=== PATIENT | male | born 1945 | race Caucasian/White ===

== ENCOUNTER 2023-10-18 13:48 | Emergency (ER) | payer MEDICARE, SELFPAY ==
[2023-10-18 13:48] VITALS: BP 133/78; PULSE 69; RESP 16; TEMP 36.7; O2SAT 94
--- NOTE | 2023-10-18 13:52 | CT_ITS ---
WS: [id number] CT ABDOMEN AND PELVIS NONCONTRAST HISTORY: hematuria, history of stones TECHNIQUE: Imaging performed through the abdomen and pelvis. Coronal and sagittal reformats are submi tted. All CT scans at [facility] use at least one of these dose optimization techniques: auto mated exposure control; mA and/or kV adjustment per patient size (includes targeted exams where dose is matched to clinical indication); or iterative reconstruction. DLP: 964.74 mGy.cm COMPARISON: None available. Lower thorax: There are a few small micronodules at the lung bases. Heart size is normal. Moderate-si zed hiatal hernia. Liver: Normal size liver. No mass or bile duct dilatation. Gallbladder: Normal gallbladder. No pericholecystic fluid or cholelithiasis. No gallbladder wall thic kening. Pancreas: Normal size and attenuation. Normal pancreatic duct. No pancreatitis or mass. Spleen: Normal. Adrenal glands: Normal. No mass. Right kidney: Mildly enlarged and edematous kidney. Moderate hydronephrosis and mild perinephric stra nding. There is several exophytic low-attenuation masses from the kidney and a few hyperdense cortica l lesions in the cortex. The RIGHT ureter is dilated into the pelvis. There are few calcifications al mary beth the course of the RIGHT ureter. These calcifications closely associated with the ureter but also the adjacent iliac artery. Left kidney: No obstruction. Aorta: Mild atherosclerosis abdominal aorta with no aneurysm. IVC filter is also present. No free fluid, intraperitoneal air or significant lymphadenopathy. GI tract: No obstruction. Mild distal diverticular disease. There is mild diffuse rectal wall thicken ing and adjacent stranding in the mesorectal fat. Abdominal wall: Negative. No hernia. Pelvis: Mildly distended urinary bladder. There is mixed density within the urinary bladder along wit h calcifications. Bilateral inguinal canals are patent containing fat and GI tract. Small bowel in th e RIGHT inguinal canal and colon with diverticula in the LEFT inguinal canal. There is no obstruction identified. The entire hernia is not included. Osseous structures: L2 mild anterior wedging without retropulsion. Fusion of the SI joints. Prior BRITTANY F RIGHT hip. Fracture line is still evident. Osteonecrosis suspected developing at the RIGHT femoral head. CT/CT abdomen pelvis wo con [id number] IMPRESSION: 1. Moderate RIGHT hydronephrosis with perinephric stranding. Additional marked dilatation of the RIGHT ureter. The entire ureter is difficult to visualize. T here are calcifications in the pelvis which may be within the ureter but are al so closely associated with the iliac artery. With the extent of the hydronephro sis and the more distal ureter being normal caliber suspect at least 1 of these calcifications is probably in the ureter. 2. Abnormal urinary bladder. There is dense material in the urinary bladder. T his may be tumor or blood. There are also additional calcifications in the blad sandra which could be from the RIGHT kidney. 3. Patent bilateral inguinal canals. Nonobstructed small bowel extends into th e RIGHT inguinal canal. Nonobstructed colon with diverticular disease extends i nto the LEFT inguinal canal. No obstruction. 4. Diverticular disease without acute diverticulitis. 5. Circumferential rectal wall thickening with adjacent perirectal fat strandi ng. Rectal neoplasm is not excluded. Recommend follow-up with gastroenterology. Rectal neoplasm needs to be excluded. 6. IVC filter. 7. Moderate hiatal hernia.
[2023-10-18] MEDS: HYDROcodone-acetaminophen 10-325 mg Tablet 1 TAB PO (14:37)
[2023-10-18 14:47] LABS: Basophils % 0.4 %; Eosinophils # 0.1 10^3/uL (0.0-0.8); Eosinophils % 1.1 %; Hematocrit 35.4 % (37-53); Lymphocytes # 1.5 10^3/uL (0.8-4.8); Mean Corpuscular HGB Conc 31.6 g/dL (30-55); Mean Corpuscular Hemoglobin 28.7 pg (27-33); Mean Corpuscular Volume 90.8 fl (82-101); Mean Platelet Volume 12.2 fL (7.4-10.4); Monocytes # 0.8 10^3/uL (0.2-0.9); Monocytes % 7.7 %; Neutrophils # 7.52 10^3/uL (1.8-7.7); Neutrophils % 75.5 %; Nucleated Red Blood Cells % 0 %; Platelet Count 190 10^3/cmm (157-399); Red Cell Distribution Width 13.2 % (12.1-15.1); White Blood Count 9.97 10^3/uL (3.29-11.43)
[2023-10-18 15:11] LABS: INR 1.05 (0.8-1.2)
--- NOTE | 2023-10-18 15:11 | ED_ITS ---
HPI - Back Pain/Injury 2 General: Chief Complaint: Back Pain/Injury Stated Complaint: blood in urine Time Seen by Provider: 10/18/23 13:48 History of Present Illness: 78-year-old man with a recent history of kidney stones, chronic back pain and hypertension who presents the emergency room by ambulance with hematuria. Apparently he had gone to his clinic and had louis blood so they called an ambulance. Ambulance had suggested he go to [place] but he insisted he come to [place] because he cannot drive and the person who can give him a ride will go to [place]. He is not having any flank pain. No fevers. He is not having any urinary retention. He has been passing some clots. No pelvic pain. He says he passed a stone a couple weeks ago that was painful and he has the kidney stone in a jar in his pocket. Review of Systems 2 Narrative: Constitutional symptoms: Negative except as documented in HPI. Skin symptoms: Negative except as documented in HPI. Eye symptoms: Negative except as documented in HPI. ENMT symptoms: Negative except as documented in HPI. Respiratory symptoms: Negative except as documented in HPI. Cardiovascular symptoms: Negative except as documented in HPI. Gastrointestinal symptoms: Negative except as documented in HPI. Genitourinary symptoms: Negative except as documented in HPI. Musculoskeletal symptoms: Negative except as documented in HPI. Neurologic symptoms: Negative except as documented in HPI. Psychiatric symptoms: Negative except as documented in HPI. Endocrine symptoms: Negative except as documented in HPI. Physical Exam 2 Narrative: EXAM NARRATIVE: General: Alert, no acute distress. Skin: Warm, dry. Head: Normocephalic, atraumatic. Neck: Supple, trachea midline. Eye: Extraocular movements are intact. Ears, nose, mouth and throat: mucosa moist. Cardiovascular: Regular, Normal peripheral perfusion. Respiratory: Lungs are clear to auscultation, respirations are non-labored, breath sounds are equal, Symmetrical chest wall expansion. Gastrointestinal: Soft, Nontender, Non distended Musculoskeletal: Normal ROM, no deformity. Neurological: Alert and oriented, No focal neurological deficit observed. Psychiatric: Cooperative, appropriate mood & affect. Course 2 Vital Signs: Vital signs: Vital Signs Temperature 98.1 F 10/18/23 13:48 Pulse Rate 69 10/18/23 13:48 Respiratory Rate 16 10/18/23 13:48 Blood Pressure 133/78 10/18/23 13:48 Pulse Oximetry 94 10/18/23 13:48 Oxygen Delivery Me thod Room Air 10/18/23 13:48 MDM - Back Pain/Injury Medical Decision Making Medical decision making: Differential diagnosis including but not limited to and based on the above HPI, review of systems and physical exam: Ureterolithiasis. Urinary tract infection. Appendicitis. Cholecystis. Musculoskeletal / back pain. Pyelonephritis. Bladder cancer. Orders placed to evaluate differential diagnosis based on the above differential, HPI and physical exam Lab Review: Laboratory results were reviewed and interpreted by myself the emergency room physician. Patient does not have any leukocytosis. Hemoglobin is 11.2. BUN and creatinine are 17 and 1.3. I do not have any previous labs so I do not know if this is a chronic kidney disease or chronic anemia. I am giving some fluids. Urinalysis shows gross hematuria. There are a few whites. IV Rocephin and IV fluids were given here. CT of the abdomen pelvis without contrast: Moderate right hydronephrosis with perinephric stranding. Marked dilatation of the right ureter. The entire ureter is difficult to visualize. There are some calcifications near the ureter and there is suspicion that 1 of these may be in the ureter. Patient also has an abnormal urinary bladder. Dense material in the bladder that could be tumor or blood. Given the patient's hematuria this is likely blood. This was reviewed and interpreted by myself the emergency room physician. I also reviewed the radiology report. I reviewed the patient's medical record. Reexamination: Patient remained stable. He has not had any urinary retention. No fevers. No altered mental status. No focal motor deficits. We have discussed at length the patient's issues with being able to to get a ride somewhere. He cannot drive and the only ride he has will not drive to [place] so he has not been able to see a urologist. We discussed going to [place]. This is 50 miles from his home and does not involve any urban driving. I am consulting urology at [place] and will send him home with the information. We also discussed that if he develops urinary retention or fevers to seek care immediately and likely should go to hospital that does have urology. Again, I stressed that it is urgent that he follow with a urologist. This does not need to wait for weeks and weeks but rather needs to be done in the next few days. Consultation: I spoke with Dr. Ferraro who is a urologist at [facility]. He says that his COMMERCIAL [employer]ES INSURANCE AGENT can see the patient tomorrow in clinic and that he should bring the CT scan. Patient has not had fever. He is not having a pain right now. He probably does have an obstructing stone that has been there for some time now. He definitely needs follow-up for possible intervention. Likely also needs a cystoscopy Assessment and plan: Hematuria Dehydration Kidney injury Hydronephrosis Nephrolithiasis Possible ureterolithiasis. ?IV fluids and IV Rocephin in the emergency room. - Discharged home - Discussed findings and plan with patient. Answered any questions. - All laboratory values were reviewed and interpreted personally by myself, the ER physician - All imaging was reviewed and interpreted personally by myself, the ER physician. - Evaluation and treatment of this problem were appropriate in the emergency setting Labs 10/18/23 14:12 10/18/23 14:12 Radiology Impressions Abdomen/Pelvis CT 10/18/23 13:52 IMPRESSION: 1. Moderate RIGHT hydronephrosis with perinephric stranding. Additional marked dilatation of the RIGHT ureter. The entire ureter is difficult to visualize. There are calcifications in the pelvis which may be within the ureter but are also closely associated with the iliac artery. With the extent of the hydronephrosis and the more distal ureter being normal caliber suspect at least 1 of these calcifications is probably in the ureter. 2. Abnormal urinary bladder. There is dense material in the urinary bladder. This may be tumor or blood. There are also additional calcifications in the bladder which could be from the RIGHT kidney. 3. Patent bilateral inguinal canals. Nonobstructed small bowel extends into the RIGHT inguinal canal. Nonobstructed colon with diverticular disease extends into the LEFT inguinal canal. No obstruction. 4. Diverticular disease without acute diverticulitis. 5. Circumferential rectal wall thickening with adjacent perirectal fat stranding. Rectal neoplasm is not excluded. Recommend follow-up with gastroenterology. Rectal neoplasm needs to be excluded. 6. IVC filter. 7. Moderate hiatal hernia. Laboratory Results WBC 9.97 10^3/uL (3.29-11.43) 10/18/23 14:12 RBC 3.90 10^6/uL (3.85-5.65) 10/18/23 14:12 Hgb 11.20 g/dL (11.27-16.99) L 10/18/23 14:12 Hct 35.4 % (37-53) L 10/18/23 14:12 MCV 90.8 fl (82-101) 10/18/23 14:12 MCH 28.7 pg (27-33) 10/18/23 14:12 MCHC 31.6 g/dL (30-55) 10/18/23 14:12 RDW 13.2 % (12.1-15.1) 10/18/23 14:12 Plt Count 190 10^3/cmm (157-399) 10/18/23 14:12 MPV 12.2 fL (7.4-10.4) H 10/18/23 14:12 Neut % (Auto) 75.5 % 10/18/23 14:12 Lymph % (Auto) 15.0 % 10/18/23 14:12 [place] % (Auto) 7.7 % 10/18/23 14:12 Eos % (Auto) 1.1 % 10/18/23 14:12 Baso % (Auto) 0.4 % 10/18/23 14:12 Neut # (Auto) 7.52 10^3/uL (1.8-7.7) 10/18/23 14:12 Lymph # (Auto) 1.5 10^3/uL (0.8-4.8) 10/18/23 14:12 [place] # (Auto) 0.8 10^3/uL (0.2-0.9) 10/18/23 14:12 Eos # (Auto) 0.1 10^3/uL (0.0-0.8) 10/18/23 14:12 Baso # (Auto) 0.0 10^3/uL (0.0-0.1) 10/18/23 14:12 Nucleated RBC % (auto) 0 % 10/18/23 14:12 Nucleated RBCs # 0.0 /100WBC 10/18/23 14:12 PT 14.10 SECONDS (12.1-14.9) 10/18/23 14:12 INR 1.05 (0.8-1.2) 10/18/23 14:12 APTT 28.2 SECONDS (23.9-36.7) 10/18/23 14:12 Sodium 133 mmol/L (136-145) L 10/18/23 14:12 Potassium 5.3 mmol/L (3.5-5.1) H 10/18/23 14:12 Chloride 99 mmol/L (98-107) 10/18/23 14:12 Carbon Dioxide 23 mmol/L (22-29) 10/18/23 14:12 Anion Gap 16.3 (5-19) 10/18/23 14:12 BUN 17 mg/dL (8-23) 10/18/23 14:12 Creatinine 1.3 mg/dL (0.7-1.2) H 10/18/23 14:12 GFR Calculation Not Reportable 10/18/23 14:12 Glucose 106 mg/dL (65-115) 10/18/23 14:12 Calculated Osmolality 278 mOsm/kg (285-295) L 10/18/23 14:12 Lactic Acid 1.8 mmol/L (0.5-2.2) 10/18/23 14:12 Calcium 9.2 mg/dL (8.5-10.5) 10/18/23 14:12 Total Bilirubin 0.2 mg/dL (0.15-1.2) 10/18/23 14:12 AST 12 U/L (0-40) 10/18/23 14:12 ALT 10 U/L (0-41) 10/18/23 14:12 Alkaline Phosphatase 87 U/L (40-130) 10/18/23 14:12 C-Reactive Protein 7.7 mg/L (0.0-4.9) H 10/18/23 14:12 Total Protein 6.8 g/dL (6.6-8.7) 10/18/23 14:12 Albumin 4.1 g/dL (3.5-5.2) 10/18/23 14:12 Globulin 2.7 g/dL (1.3-4.6) 10/18/23 14:12 Urine Color Red (Yellow) A 10/18/23 14:22 Urine Appearance Cloudy (CLEAR) A 10/18/23 14:22 Urine pH 6.5 (5-7) 10/18/23 14:22 Ur Specific [place] 1.010 (1.005-1.030) 10/18/23 14:22 Urine Protein 3+ (Negative) H 10/18/23 14:22 Urine Glucose (UA) Norm (Normal) 10/18/23 14:22 Urine Ketones Negative (Negative) 10/18/23 14:22 Urine Blood 3+ (Negative) H 10/18/23 14:22 Urine Nitrate Negative (Negative) 10/18/23 14:22 Urine Bilirubin Neg (Negative) 10/18/23 14:22 Urine Urobilinogen Norm mg/dL (Negative) 10/18/23 14:22 Ur Leukocyte Esterase Trace (Negative) H 10/18/23 14:22 Urine RBC Too numerous to cnt /hpf (0-2) H 10/18/23 14:22 Urine WBC 11-20 /hpf (0-5) 10/18/23 14:22 Ur Squamous Epith Cells 0-4 /hpf (0-5) H 10/18/23 14:22 Amorphous Sediment Not Reportable 10/18/23 14:22 Urine Bacteria Trace /hpf (NONE) 10/18/23 14:22 All radiology interpretation(s) finalized by discharge Discharge Plan Discharge Patient Disposition: Home Clinical Impression: Hematuria, Nephrolithiasis, Hydronephrosis, Dehydration Condition: Stable Prescriptions: New Flomax 0.4 mg capsule 0.4 mg PO DAILY Qty: 30 0RF cefdinir 300 mg capsule 300 mg PO BID 10 Days Qty: 20 0RF Discharge Orders: Discharge ED (Routine); Ordered 10/18/23 Ordered By: Sherrie Campbell Referrals: Andrew Casarez [Referring] - 4-7 days (Please call Dr. Casarez's office for follow-up appointment.) Harshad Ferraro MD [Referring] - (Dr. Ferraro's COMM[employer] INSURANCE AGENT can see you tomorrow in clinic in [place] if you can make it. Dr. Ferraro and Hermelindo work together so you can see either one of them in their clinic. Both are aware of your case) Jose Caicedo DO [Primary Care Provider] - 1-3 days Discharge Diet: Usual diet Discharge Activity: Increase activity as tolerated Patient Instructions: Hematuria (ED) Activity Restrictions/Additional Instructions: If you develop urinary retention (you are no longer able to urinate and you develop pain in your pelvic region) please seek medical attention immediately. I would suggest that you go to the hospital that has urology. Either [facility] in [place] or [facility] in [place]. Thank you for choosing [facility] for your healthcare needs today. Please realize this is an emergency room and that we are providing you with a medical screening exam and this may not be complete and all inclusive of all the testing and or work up that you may need to determine your ailment or severity of your illness. You have been screened and evaluated and felt safe for discharge. Health conditions do change or evolve sometimes and as such it is important that you follow up with your Primary Doctor to be re checked, 3-5 days is a general good time frame for follow up. You are always welcome to return to the ED for re assessment if your symptoms are worsening or you have new concerns Coding Level of Care Code ED Alteration Workroom Supervisor for Ellen Doran
[2023-10-18 15:12] LABS: Partial Thromboplastin Time 28.2 SECONDS (23.9-36.7)
[2023-10-18 15:14] LABS: Lactic Sepsis W/Reflex 1.8 mmol/L (0.5-2.2)
[2023-10-18 15:15] LABS: Alanine Aminotransferase 10 U/L (0-41); Albumin Level 4.1 g/dL (3.5-5.2); Alkaline Phosphatase 87 U/L (40-130); Anion Gap 16.3 (5-19); Aspartate Amino Transferase 12 U/L (0-40); Blood Urea Nitrogen 17 mg/dL (8-23); C Reactive Protein 7.7 mg/L (0.0-4.9); Calcium 9.2 mg/dL (8.5-10.5); Carbon Dioxide 23 mmol/L (22-29); Chloride 99 mmol/L (98-107); Globulin 2.7 g/dL (1.3-4.6); Glucose 106 mg/dL (65-115); Osmolality Calculated 278 mOsm/kg (285-295); Potassium 5.3 mmol/L (3.5-5.1); Sodium 133 mmol/L (136-145); Total Bilirubin 0.2 mg/dL (0.15-1.2); Total Protein 6.8 g/dL (6.6-8.7)
[2023-10-18 15:43] LABS: Protein Urine 3+ (Negative); Urine Appearance Cloudy (CLEAR); Urine Color Red (Yellow); pH Urine 6.5 (5-7)
[2023-10-18 15:44] LABS: Add Urine Culture? Yes; Bacteria Urine TRACE /hpf; Bilirubin Urine Neg (Negative); Blood Urine 3+ (Negative); Glucose Urine UA Norm (Normal); Ketones Urine Negative (Negative); Leukocyte Esterase Urine Trace (Negative); Nitrate Urine Negative (Negative); RBC Urine TOO NUMEROUS TO CNT /hpf (0-2); Squamous Epithelial Cell Urine 0-4 /hpf (0-5); Urobilinogen Urine Norm (Negative)
[2023-10-18] MEDS: cefTRIAXone 1,000 mg SDV 1000 MG IVP (16:06)
[2023-10-18] MEDS: sodium chloride 0.9% 1,000 ML 999 ML IV (16:07)
[2023-10-18 17:11] VITALS: BP 126/74; PULSE 70; O2SAT 97
== END 2023-10-18 17:12 | disposition home or self-care (01) ==
PROVIDERS: Emergency Provider Emergency Medicine
DX: N13.2 Hydronephrosis with renal and ureteral calculous obstruction (principal); R31.9 Hematuria, unspecified; E86.0 Dehydration
CPT/HCPCS: 36415; 74176; 80053; 81001; 83605; 85025; 85610; 85730; 86140; 87040; 87086; 96374; 99285; J0696; J7030

== ENCOUNTER 2023-12-20 13:00 | Oncology outpatient (recurring) (ONCR) | payer MEDICARE, SELFPAY ==
--- OUTSIDE RECORDS SUMMARY | 2023-12-06 11:37 | XMS_ITS ---
Author Name Unknown Address [address] [place] [address] [phone] Phone Organization Unknown Address [address] [place] [address] [phone] Phone Care Team Providers Care Data Collector Name Role Phone OSBALDO BAKER MD Attending Unavailable Social History Type Status Start Date End Date Code Code Syst em Smoking History Never smoker (Never Smoked) [id number] SNOMED CT Sex Male Hospital Discharge Instructions Should you have any questions prior to discharge, please contact a member of your healthcare team. If you have left the hospital and have any questions, please contact your primary care physician. Reason For Referral No Data Found Allergies and Adverse Reactions Allergy Substance Reaction Severity Start Date Concern Status Co de Code System GLYCOPYRROLATE Active 0041 RxNorm Plan of Treatment No Data Found Encounters Encounter Diagnosis Start Date Code Code Sys tem Acute COVID-19 05/30/2023 9046748520 SNOMED-CT Personal Care Team Section Performer Name Performer Role Active Date Inactive Da ulisses
--- OUTSIDE RECORDS SUMMARY | 2023-12-06 11:37 | XMS_ITS ---
Author Name Unknown Address [address] [place] [address] [phone] Phone Organization Unknown Address [address] [place] [address] [phone] Phone Care Team Providers Care Arc Welding Machine Operator Name Role Phone OSBALDO BAKER MD Attending Unavailable Social History Type Status Start Date End Date Code Code Syst em Smoking History Never smoker (Never Smoked) 076502804 SNOMED CT Sex Male Hospital Discharge Instructions Should you have any questions prior to discharge, please contact a member of your healthcare team. If you have left the hospital and have any questions, please contact your primary care physician. Reason For Referral No Data Found Allergies and Adverse Reactions Allergy Substance Reaction Severity Start Date Concern Status Co de Code System GLYCOPYRROLATE Active 4958 RxNorm Plan of Treatment No Data Found Encounters Encounter Diagnosis Start Date Code Code Sys tem 05/16/2023 [id number] SNOMED-CT Personal Care Team Section Performer Name Performer Role Active Date Inactive Da te
--- OUTSIDE RECORDS SUMMARY | 2023-12-06 11:37 | XMS_ITS ---
Author Name Unknown Address [address] [place] [address] [phone] Phone Organization Unknown Address [address] [place] [address] [phone] Phone Care Team Providers Care Business Center Attendant Name Role Phone OSBALDO BAKER MD Attending Unavailable Social History Type Status Start Date End Date Code Code Syst em Smoking History Never smoker (Never Smoked) 456897886 SNOMED CT Sex Male Hospital Discharge Instructions Should you have any questions prior to discharge, please contact a member of your healthcare team. If you have left the hospital and have any questions, please contact your primary care physician. Reason For Referral No Data Found Allergies and Adverse Reactions Allergy Substance Reaction Severity Start Date Concern Status Co de Code System GLYCOPYRROLATE Active 1988 RxNorm Plan of Treatment No Data Found Encounters Encounter Diagnosis Start Date Code Code Sys tem Acute COVID-19 05/23/2023 [id number] SNOMED-CT Personal Care Team Section Performer Name Performer Role Active Date Inactive Da ulisses
--- OUTSIDE RECORDS SUMMARY | 2023-12-06 11:38 | XMS_ITS ---
Author Name Unknown Address [address] [place] [address] [phone] Phone Organization Unknown Address [address] [place] [address] [phone] Phone Care Team Providers Care Pharmacy Technician Per Diem Name Role Phone OSBALDO BAKER MD Attending Unavailable Social History Type Status Start Date End Date Code Code Syst em Smoking History Never smoker (Never Smoked) 098472057 SNOMED CT Sex Male Hospital Discharge Instructions Should you have any questions prior to discharge, please contact a member of your healthcare team. If you have left the hospital and have any questions, please contact your primary care physician. Reason For Referral No Data Found Allergies and Adverse Reactions Allergy Substance Reaction Severity Start Date Concern Status Co de Code System GLYCOPYRROLATE Active 4952 RxNorm Plan of Treatment No Data Found Encounters Encounter Diagnosis Start Date Code Code Sys tem 06/20/2023 [id number] SNOMED-CT Personal Care Team Section Performer Name Performer Role Active Date Inactive Da te
--- OUTSIDE RECORDS SUMMARY | 2023-12-06 11:38 | XMS_ITS ---
Author Name Unknown Address [address] [place] [address] [phone] Phone Organization Unknown Address [address] [place] [address] [phone] Phone Care Team Providers Care Nursing Student Name Role Phone OSBALDO BAKER MD Attending Unavailable Social History Type Status Start Date End Date Code Code Syst em Smoking History Never smoker (Never Smoked) 319411051 SNOMED CT Sex Male Hospital Discharge Instructions Should you have any questions prior to discharge, please contact a member of your healthcare team. If you have left the hospital and have any questions, please contact your primary care physician. Reason For Referral No Data Found Allergies and Adverse Reactions Allergy Substance Reaction Severity Start Date Concern Status Co de Code System GLYCOPYRROLATE Active 4951 RxNorm Plan of Treatment No Data Found Encounters Encounter Diagnosis Start Date Code Code Sys tem Closed fracture of neck of femur 06/06/2023 [id number] SNOMED-CT Personal Care Team Section Performer Name Performer Role Active Date Inactive Da te
--- OUTSIDE RECORDS SUMMARY | 2023-12-06 11:38 | XMS_ITS ---
Author Name Unknown Address [address] [place] [address] [phone] Phone Organization Unknown Address [address] [place] [address] [phone] Phone Care Team Providers Care Resistance Machine Welder Setter Name Role Phone OSBALDO BAKER MD Attending Unavailable Social History Type Status Start Date End Date Code Code Syst em Smoking History Never smoker (Never Smoked) 545212995 SNOMED CT Sex Male Hospital Discharge Instructions Should you have any questions prior to discharge, please contact a member of your healthcare team. If you have left the hospital and have any questions, please contact your primary care physician. Reason For Referral No Data Found Allergies and Adverse Reactions Allergy Substance Reaction Severity Start Date Concern Status Co de Code System GLYCOPYRROLATE Active 4957 RxNorm Plan of Treatment No Data Found Encounters Encounter Diagnosis Start Date Code Code Sys tem Depressive disorder 06/27/2023 [id number] SNOMED-C T Personal Care Team Section Performer Name Performer Role Active Date Inactive Da te
[2023-12-06 13:41] LABS: Basophils % 0.4 %; Eosinophils # 0.2 10^3/uL (0.0-0.8); Eosinophils % 1.7 %; Hematocrit 26.1 % (37-53); Lymphocytes # 1.3 10^3/uL (0.8-4.8); Lymphocytes % 12.5 %; Mean Corpuscular HGB Conc 29.5 g/dL (30-55); Mean Corpuscular Hemoglobin 24.2 pg (27-33); Mean Corpuscular Volume 82.1 fl (82-101); Mean Platelet Volume 9.9 fL (7.4-10.4); Monocytes # 0.9 10^3/uL (0.2-0.9); Monocytes % 8.9 %; Neutrophils # 7.93 10^3/uL (1.8-7.7); Neutrophils % 75.9 %; Nucleated Red Blood Cells % 0 %; Platelet Count 410 10^3/cmm (157-399); Red Blood Count 3.18 10^6/uL (3.85-5.65); Red Cell Distribution Width 16.6 % (12.1-15.1); White Blood Count 10.45 10^3/uL (3.29-11.43)
[2023-12-06 15:00] LABS: Alanine Aminotransferase 8 U/L (0-41); Albumin Level 3.7 g/dL (3.5-5.2); Alkaline Phosphatase 97 U/L (40-130); Anion Gap 20.1 (5-19); Aspartate Amino Transferase 13 U/L (0-40); Blood Urea Nitrogen 23 mg/dL (8-23); Calcium 8.8 mg/dL (8.5-10.5); Carbon Dioxide 22 mmol/L (22-29); Chloride 99 mmol/L (98-107); Creatinine Clr Calc Pharmacy 44.5663; Ferritin 17 ng/mL (30-400); Globulin 3.2 g/dL (1.3-4.6); Glucose 107 mg/dL (65-115); Iron 14 ug/dL (59-158); Osmolality Calculated 286 mOsm/kg (285-295); Percent Saturation 5.4 % (20-50); Potassium 5.1 mmol/L (3.5-5.1); Sodium 136 mmol/L (136-145); Total Bilirubin 0.2 mg/dL (0.15-1.2); Total Iron Binding Capacity 256 mcg/dl; Total Protein 6.9 g/dL (6.6-8.7); Unsaturated Iron Binding 242 ug/dL (112-347)
[2023-12-11 13:45] VITALS: BP 121/61; PULSE 61; RESP 18; TEMP 36.2; O2SAT 94
[2023-12-11] MEDS: iron sucrose 200 MG in sodium chloride 0.9% (100 ml) 100 ML 220 MG IV (14:15)
[2023-12-11] MEDS: sodium chloride 0.9% 250 ML 75 ML IV (14:15)
[2023-12-11 15:15] VITALS: BP 147/58; PULSE 71; RESP 18; TEMP 36.3; O2SAT 95
[2023-12-13 13:58] VITALS: BP 142/68; PULSE 68; RESP 17; TEMP 36.2; O2SAT 96
[2023-12-13] MEDS: iron sucrose 200 MG in sodium chloride 0.9% (100 ml) 100 ML 220 MG IV (14:09)
[2023-12-13 15:13] VITALS: BP 150/66; PULSE 66; RESP 16; TEMP 36.4; O2SAT 98
--- OUTSIDE RECORDS SUMMARY | 2023-12-15 10:16 | XMS_ITS ---
Author Name Unknown Address [address] [place] [address] [phone] Phone Organization Unknown Address [address] [place] [address] [phone] Phone Care Team Providers Care Marine [employer] Attendant Name Role Phone OSBALDO BAKER MD Attending Unavailable Social History Type Status Start Date End Date Code Code Syst em Smoking History Never smoker (Never Smoked) 203419581 SNOMED CT Sex Male Hospital Discharge Instructions Should you have any questions prior to discharge, please contact a member of your healthcare team. If you have left the hospital and have any questions, please contact your primary care physician. Reason For Referral No Data Found Allergies and Adverse Reactions Allergy Substance Reaction Severity Start Date Concern Status Co de Code System GLYCOPYRROLATE Active 5226 RxNorm Plan of Treatment No Data Found Encounters Encounter Diagnosis Start Date Code Code Sys tem Acute COVID-19 05/30/2023 [id number] SNOMED-CT Personal Care Team Section Performer Name Performer Role Active Date Inactive Da ulisses
--- OUTSIDE RECORDS SUMMARY | 2023-12-15 10:16 | XMS_ITS ---
Author Name Unknown Address [address] [place] [address] [phone] Phone Organization Unknown Address [address] [place] [address] [phone] Phone Care Team Providers Care Director Of Corporate Strategy Name Role Phone OSBALDO BAKER MD Attending Unavailable Social History Type Status Start Date End Date Code Code Syst em Smoking History Never smoker (Never Smoked) [id number] SNOMED CT Sex Male Hospital Discharge Instructions Should you have any questions prior to discharge, please contact a member of your healthcare team. If you have left the hospital and have any questions, please contact your primary care physician. Reason For Referral No Data Found Allergies and Adverse Reactions Allergy Substance Reaction Severity Start Date Concern Status Co de Code System GLYCOPYRROLATE Active 4956 RxNorm Plan of Treatment No Data Found Encounters Encounter Diagnosis Start Date Code Code Sys tem 05/16/2023 [id number] SNOMED-CT Personal Care Team Section Performer Name Performer Role Active Date Inactive Da te
--- OUTSIDE RECORDS SUMMARY | 2023-12-15 10:16 | XMS_ITS ---
Author Name Unknown Address [address] [place] [address] [phone] Phone Organization Unknown Address [address] [place] [address] [phone] Phone Care Team Providers Care Director Content Marketing Name Role Phone OSBALDO BAKER MD Attending Unavailable Social History Type Status Start Date End Date Code Code Syst em Smoking History Never smoker (Never Smoked) [id number] SNOMED CT Sex Male Hospital Discharge Instructions [...] Closed fracture of neck of femur 06/06/2023 [id number] 3 SNOMED-CT Personal Care Team Section Performer Name Performer Role Active Date Inactive Da te
--- OUTSIDE RECORDS SUMMARY | 2023-12-15 10:16 | XMS_ITS ---
Author Name Unknown Address [address] [place] [address] [phone] Phone Organization Unknown Address [address] [place] [address] [phone] Phone Care Team Providers Care Animal Services Officer Name Role Phone OSBALDO BAKER MD Attending Unavailable Social History Type Status Start Date End Date Code Code Syst em Smoking History Never smoker (Never Smoked) 646834724 SNOMED CT Sex Male Hospital Discharge Instructions Should you have any questions prior to discharge, please contact a member of your healthcare team. If you have left the hospital and have any questions, please contact your primary care physician. Reason For Referral No Data Found Allergies and Adverse Reactions Allergy Substance Reaction Severity Start Date Concern Status Co de Code System GLYCOPYRROLATE Active 1781 RxNorm Plan of Treatment No Data Found Encounters Encounter Diagnosis Start Date Code Code Sys tem Acute COVID-19 05/23/2023 [id number] SNOMED-CT Personal Care Team Section Performer Name Performer Role Active Date Inactive Da ulisses
--- OUTSIDE RECORDS SUMMARY | 2023-12-15 10:17 | XMS_ITS ---
Author Name Unknown Address [address] [place] [address] [phone] Phone Organization Unknown Address [address] [place] [address] [phone] Phone Care Team Providers Care Printing Bindery Assistant Name Role Phone OSBALDO BAKER MD Attending Unavailable Social History Type Status Start Date End Date Code Code Syst em Smoking History Never smoker (Never Smoked) 403194604 SNOMED CT Sex Male Hospital Discharge Instructions [...] Start Date Code Code Sys tem 06/20/2023 [id number] SNOMED-CT Personal Care Team Section Performer Name Performer Role Active Date Inactive Da te
--- OUTSIDE RECORDS SUMMARY | 2023-12-15 10:17 | XMS_ITS ---
Author Name Unknown Address [address] [place] [address] [phone] Phone Organization Unknown Address [address] [place] [address] [phone] Phone Care Team Providers Care Level Vial Inspector Name Role Phone OSBALDO BAKER MD Attending Unavailable Social History Type Status Start Date End Date Code Code Syst em Smoking History Never smoker (Never Smoked) 767673074 SNOMED CT Sex Male Hospital Discharge Instructions Should you have any questions prior to discharge, please contact a member of your healthcare team. If you have left the hospital and have any questions, please contact your primary care physician. Reason For Referral No Data Found Allergies and Adverse Reactions Allergy Substance Reaction Severity Start Date Concern Status Co de Code System GLYCOPYRROLATE Active 4950 RxNorm Plan of Treatment No Data Found Encounters Encounter Diagnosis Start Date Code Code Sys tem Depressive disorder 06/27/2023 42621983 SNOMED-C T Personal Care Team Section Performer Name Performer Role Active Date Inactive Da te
[2023-12-15 10:27] VITALS: BP 133/68; PULSE 62; RESP 16; TEMP 36.9; O2SAT 96
[2023-12-15] MEDS: iron sucrose 200 MG in sodium chloride 0.9% (100 ml) 100 ML 220 MG IV (10:53)
--- OUTSIDE RECORDS SUMMARY | 2023-12-18 12:33 | XMS_ITS ---
Author Name Unknown Address [address] [place] [address] [phone] Phone Organization Unknown Address [address] [place] [address] [phone] Phone Care Team Providers Care Corporate Treasurer Name Role Phone OSBALDO BAKER MD Attending Unavailable Social History Type Status Start Date End Date Code Code Syst em Smoking History Never smoker (Never Smoked) 623672149 SNOMED CT Sex Male Hospital Discharge Instructions [...] Start Date Code Code Sys tem 05/16/2023 [id number] SNOMED-CT Personal Care Team Section Performer Name Performer Role Active Date Inactive Da te
--- OUTSIDE RECORDS SUMMARY | 2023-12-18 12:34 | XMS_ITS ---
Author Name Unknown Address [address] [place] [address] [phone] Phone Organization Unknown Address [address] [place] [address] [phone] Phone Care Team Providers Care Waiter/Waitress Third Class Name Role Phone OSBALDO BAKER MD Attending Unavailable Social History Type Status Start Date End Date Code Code Syst em Smoking History Never smoker (Never Smoked) 315730868 SNOMED CT Sex Male Hospital Discharge Instructions Should you have any questions prior to discharge, please contact a member of your healthcare team. If you have left the hospital and have any questions, please contact your primary care physician. Reason For Referral No Data Found Allergies and Adverse Reactions Allergy Substance Reaction Severity Start Date Concern Status Co de Code System GLYCOPYRROLATE Active 5714 RxNorm Plan of Treatment No Data Found Encounters Encounter Diagnosis Start Date Code Code Sys tem Acute COVID-19 05/23/2023 9954775011 SNOMED-CT Personal Care Team Section Performer Name Performer Role Active Date Inactive Da ulisses
--- OUTSIDE RECORDS SUMMARY | 2023-12-18 12:34 | XMS_ITS ---
Author Name Unknown Address [address] [place] [address] [phone] Phone Organization Unknown Address [address] [place] [address] [phone] Phone Care Team Providers Care Director Of Restaurants Name Role Phone OSBALDO BAKER MD Attending Unavailable Social History Type Status Start Date End Date Code Code Syst em Smoking History Never smoker (Never Smoked) 302595227 SNOMED CT Sex Male Hospital Discharge Instructions [...] Code Code Sys tem Depressive disorder 06/27/2023 83301492 SNOMED-C T Personal Care Team Section Performer Name Performer Role Active Date Inactive Da te
--- OUTSIDE RECORDS SUMMARY | 2023-12-18 12:34 | XMS_ITS ---
Author Name Unknown Address [address] [place] [address] [phone] Phone Organization Unknown Address [address] [place] [address] [phone] Phone Care Team Providers Care School Secretary Name Role Phone OSBALDO BAKER MD Attending Unavailable Social History Type Status Start Date End Date Code Code Syst em Smoking History Never smoker (Never Smoked) 370845520 SNOMED CT Sex Male Hospital Discharge Instructions Should you have any questions prior to discharge, please contact a member of your healthcare team. If you have left the hospital and have any questions, please contact your primary care physician. Reason For Referral No Data Found Allergies and Adverse Reactions Allergy Substance Reaction Severity Start Date Concern Status Co de Code System GLYCOPYRROLATE Active 2182 RxNorm Plan of Treatment No Data Found Encounters Encounter Diagnosis Start Date Code Code Sys tem Acute COVID-19 05/30/2023 3284096106 SNOMED-CT Personal Care Team Section Performer Name Performer Role Active Date Inactive Da ulisses
--- OUTSIDE RECORDS SUMMARY | 2023-12-18 12:34 | XMS_ITS ---
Author Name Unknown Address [address] [place] [address] [phone] Phone Organization Unknown Address [address] [place] [address] [phone] Phone Care Team Providers Care Merchandising Specialist Name Role Phone OSBADLO BAKER MD Attending Unavailable Social History Type Status Start Date End Date Code Code Syst em Smoking History Never smoker (Never Smoked) 496819585 SNOMED CT Sex Male Hospital Discharge Instructions [...] Start Date Code Code Sys tem 06/20/2023 [id number] SNOMED-CT Personal Care Team Section Performer Name Performer Role Active Date Inactive Da te
--- OUTSIDE RECORDS SUMMARY | 2023-12-18 12:34 | XMS_ITS ---
Author Name Unknown Address [address] [place] [address] [phone] Phone Organization Unknown Address [address] [place] [address] [phone] Phone Care Team Providers Care Entry Table Operator Name Role Phone OSBALDO BAKER MD Attending Unavailable Social History Type Status Start Date End Date Code Code Syst em Smoking History Never smoker (Never Smoked) 550196886 SNOMED CT Sex Male Hospital Discharge Instructions [...] Closed fracture of neck of femur 06/06/2023 48885503 3 SNOMED-CT Personal Care Team Section Performer Name Performer Role Active Date Inactive Da te
[2023-12-18 13:20] VITALS: BP 144/63; PULSE 63; RESP 16; TEMP 36.9; O2SAT 96
[2023-12-18] MEDS: iron sucrose 200 MG in sodium chloride 0.9% (100 ml) 100 ML 220 MG IV (13:27)
[2023-12-18 14:11] VITALS: BP 146/72; PULSE 74; RESP 16; TEMP 36.9; O2SAT 96
[2023-12-20 11:18] VITALS: BP 181/89; PULSE 74; RESP 16; TEMP 36.4; O2SAT 97
[2023-12-20 13:10] VITALS: BP 153/63; PULSE 58; RESP 16; TEMP 36.9; O2SAT 94
[2023-12-20] MEDS: iron sucrose 200 MG in sodium chloride 0.9% (100 ml) 100 ML 220 MG IV (13:31)
[2023-12-20 14:13] VITALS: BP 136/76; PULSE 74; RESP 16; TEMP 36.7; O2SAT 96
== END 2023-12-25 23:59 | disposition home or self-care (01) ==
PROVIDERS: Visit Provider Internal Medicine Medical Oncology
DX: D50.0 Iron deficiency anemia secondary to blood loss (chronic) (principal); Z53.9 Procedure and treatment not carried out, unspecified reason; Z79.899 Other long term (current) drug therapy
CPT/HCPCS: 36415; 80053; 82728; 83540; 83550; 85025; 96365; 99205; J1756; J7050

== ENCOUNTER 2024-01-17 12:20 | Oncology outpatient (recurring) (ONCR) | payer MEDICARE, SELFPAY ==
[2024-01-17 12:57] LABS: Basophils % 0.2 %; Eosinophils % 0.2 %; Hematocrit 29.9 % (37-53); Lymphocytes # 0.9 10^3/uL (0.8-4.8); Lymphocytes % 6.5 %; Mean Corpuscular HGB Conc 30.4 g/dL (30-55); Mean Corpuscular Hemoglobin 24.1 pg (27-33); Mean Corpuscular Volume 79.3 fl (82-101); Mean Platelet Volume 10.3 fL (7.4-10.4); Monocytes % 7.4 %; Neutrophils # 11.35 10^3/uL (1.8-7.7); Neutrophils % 81.5 %; Nucleated Red Blood Cells % 0 %; Platelet Count 341 10^3/cmm (157-399); Red Blood Count 3.77 10^6/uL (3.85-5.65); Red Cell Distribution Width 21.7 % (12.1-15.1); White Blood Count 13.94 10^3/uL (3.29-11.43)
[2024-01-17 13:13] LABS: Alanine Aminotransferase 7 U/L (0-41); Albumin Level 3.4 g/dL (3.5-5.2); Alkaline Phosphatase 123 U/L (40-130); Anion Gap 20.3 (5-19); Aspartate Amino Transferase 24 U/L (0-40); Blood Urea Nitrogen 24 mg/dL (8-23); Calcium 8.8 mg/dL (8.5-10.5); Carbon Dioxide 20 mmol/L (22-29); Chloride 95 mmol/L (98-107); Creatinine Clr Calc Pharmacy 53.5493; Ferritin 244 ng/mL (30-400); Glucose 144 mg/dL (65-115); Iron 24 ug/dL (59-158); Osmolality Calculated 279 mOsm/kg (285-295); Potassium 4.3 mmol/L (3.5-5.1); Sodium 131 mmol/L (136-145); Total Bilirubin 0.6 mg/dL (0.15-1.2); Total Iron Binding Capacity 160 mcg/dl; Total Protein 6.4 g/dL (6.6-8.7); Unsaturated Iron Binding 136 ug/dL (112-347)
== END 2024-01-25 23:59 | disposition home or self-care (01) ==
LOC: ONCMED 12:21
PROVIDERS: Visit Provider Internal Medicine Medical Oncology
DX: D50.0 Iron deficiency anemia secondary to blood loss (chronic) (principal); C67.4 Malignant neoplasm of posterior wall of bladder; D64.9 Anemia, unspecified; Z79.899 Other long term (current) drug therapy
CPT/HCPCS: 80053; 82728; 83540; 83550; 85025; 99215

== ENCOUNTER 2024-01-21 15:16 | Emergency (ER) | payer MEDICARE, SELFPAY ==
[2024-01-21] VITALS (12 sets, daily range): BP systolic 97–143; BP diastolic 57–83; PULSE 53–78; RESP 14–20; TEMP 36.9; O2SAT 80–95; BMI 33.0
--- NOTE | 2024-01-21 15:27 | PC.NURSE ---
PATIENT PLACED ON 4 L NC TO IMPROVE O2 SATURATION TO 91%.
--- NOTE | 2024-01-21 15:28 | CTR_ITS ---
PROCEDURE INFORMATION: Exam: CTA Chest With Contrast Exam date and time: 01/21/2024 3:44 PM Age: 78 years old Clinical indication: Abdominal tenderness; Shortness of breath; Additional info: SOB TECHNIQUE: Imaging protocol: Computed tomographic angiography of the chest with contrast. Exam focused on the arteries. 3D rendering (Not supervised by radiologist): MIP and/or 3D reconstructed images were created by the technologist. Radiation optimization: All CT scans at this facility use at least one of these dose optimization techniques: automated exposure control; mA and/or kV adjustment per patient size (includes targeted exams where dose is matched to clinical indication); or iterative reconstruction. Contrast material: OMNIPAQUE 350; Contrast volume: 100 ml; Contrast route: INTRAVENOUS (IV); COMPARISON: CT abdomen pelvis wo con [id number] 10/18/2023 2:28 PM RADIATION DOSE METRICS: Total DLP (mGy-cm): 1590.6 FINDINGS: Pulmonary arteries: No pulmonary emboli. Aorta: There is no aortic aneurysm. Veins: There is mass effect on the left brachiocephalic vein with associated reflux into a vein adjacent to the aortic arch. Lungs: There are a few scattered bilateral pulmonary nodules measuring less than 6 mm. Pleural spaces: Bilateral pleural effusions with the left greater than the right. There is no pneumothorax. Heart: There is no cardiomegaly. There is no pericardial effusion. Lymph nodes: Prominent mediastinal nodes which may be reactive. Stomach: Large hiatal hernia with the entire stomach in the thoracic cavity. Bones/joints: Osteoarthritis of both shoulders. No acute osseous abnormality. There is degenerative disease of the spine. Soft tissues: Unremarkable. Other findings: There is extensive streak artifact limiting evaluation of the character of the fluids especially. consider optional CT Chest at 12 months (Reference: Moe). REFERENCES: Moe Lynne, et al. Guidelines for Management of Incidental Pulmonary Nodules Detected on CT Images: From the Fleischner Society 2017. Radiology. 2017;284(1):228-243. PROCEDURE INFORMATION: Exam: CT Abdomen And Pelvis With Contrast Exam date and time: 01/21/2024 3:44 PM Age: 78 years old Clinical indication: Abdominal tenderness; Shortness of breath; Additional info: SOB TECHNIQUE: Imaging protocol: Computed tomography of the abdomen and pelvis with contrast. Radiation optimization: All CT scans at this facility use at least one of these dose optimization techniques: automated exposure control; mA and/or kV adjustment per patient size (includes targeted exams where dose is matched to clinical indication); or iterative reconstruction. Contrast material: OMNIPAQUE 350; Contrast volume: 100 ml; Contrast route: INTRAVENOUS (IV); COMPARISON: CT abdomen pelvis wo con [id number] 10/18/2023 2:28 PM RADIATION DOSE METRICS: Total DLP (mGy-cm): 1590.6 FINDINGS: Limitations: Extensive streak artifacts limiting evaluation of the character of the fluid collections. Liver: Ill-defined hypodensity in the left lobe of the liver, underlying mass cannot be excluded, recommend evaluation with a CT of the liver or MRI. Gallbladder and biliary ducts: No intrahepatic or extrahepatic biliary ductal dilatation. The gallbladder is unremarkable with no radioopaque stone. Pancreas: The pancreas is atrophic. Spleen: The spleen is unremarkable. Adrenal glands: Adrenal glands are unremarkable. Kidneys and ureters: Severe right hydronephrosis with no evidence of radiopaque obstructing stone. Moderate left hydronephrosis with no obstructing stone. Bilateral simple renal cysts are present, as well as other subcentimeter hypodensities which are too small to characterize. Stomach and bowel: There is a large hiatal hernia with the entire stomach within the thoracic cavity. No evidence of obstruction. Small and large bowel are normal in caliber without evidence of obstruction. There is extension of the soft tissue density within the bladder extending into the rectum posteriorly, recommend MRI for better evaluation. Appendix: No evidence of appendicitis. Intraperitoneal space: Small amount of free pelvic fluid which is hyperdense indicating blood however, due to the streak artifacts evaluation is limited. Vasculature: There is an IVC filter in position. Lymph nodes: No pathologically enlarged lymph nodes (by short axis size criteria). Urinary bladder: The bladder is not fully distended however, there are enhancing masses within the bladder wall posteriorly and to the left, recommend direct visualization. There is extension of the bladder mass posteriorly into the rectum, there is associated free fluid in the pelvis which appears to be hyperdense suggesting a hemoperitoneum, MR of the pelvis would evaluate this better. Reproductive: Visualized portions of the male reproductive tract are unremarkable, though routine CT is limited in this regard. Bones/joints: There has been internal fixation of the right femoral neck fracture, the fracture line is still visible. Hardware is intact. No acute osseous abnormality. There is degenerative disease of the spine. Mild compression of the L2 vertebral body without evidence of retropulsion. Soft tissues: Bilateral inguinal hernias containing bowel loops (small bowel on the right and colon in the left) with no evidence of obstruction. CT/CT angio chest w abd pel w con IMPRESSION: 1. Bilateral pleural effusions with the left greater than the right. Associated compressive atelectasis. 2. There are a few scattered bilateral pulmonary nodules measuring less than 6 mm. For patients at low risk (minimal or absent history of smoking and of other known risk factors), no routine follow-up is indicated. For patients at high risk (history of smoking or of other known risk factors), IMPRESSION: 1. Multiple enhancing bladder wall masses in the posterior aspect involving the trigone with associated bilateral hydronephrosis with the right greater than the left. Recommend direct visualization. There appears to be posterior extension of the bladder mass into the rectum with associated pelvic fluid which may be a hemoperitoneum, this cannot be adequately evaluated due to streak artifacts, recommend MR of the pelvis for better evaluation. 2. Possible left hepatic hypodense mass, this can be evaluated by a CT of the liver or MR. 3. Bilateral inguinal hernias containing bowel with no evidence of obstruction. 4. Large hiatal hernia containing entire stomach with no evidence of obstruction. 5. Post internal fixation of the right femoral neck fracture, fracture line is still visible. COMMENTS: 1. For patients with an IVC filter, recommend assessment for a management plan for the patient's IVC filter. If there is no established management plan, recommend referral to an interventional clinician on a nonemergent basis for evaluation. 2. Consistent with the [place] [employer]'s Incidental Findings Committee white paper (J Am Dee Dee Radiol 2018): Any incidental renal lesion less than 1 cm or classified as too small to characterize, or any incidental cystic renal lesion characterized as simple-appearing, is likely benign. No follow-up imaging is recommended for these lesions per consensus recommendations based on imaging criteria.
--- NOTE | 2024-01-21 15:28 | XRR_ITS ---
PROCEDURE INFORMATION: Exam: XR Chest Exam date and time: 01/21/2024 3:55 PM Age: 78 years old Clinical indication: Shortness of breath; Patient HX: Weakness; AMS; Cough TECHNIQUE: Imaging protocol: Radiologic exam of the chest. Views: 1 view. COMPARISON: CT angio chest w abd pel w con 01/21/2024 3:44 PM FINDINGS: Tubes, catheters and devices: Leadless pacemaker in position. Lungs: Left lower lobe atelectasis versus early infiltrate. Pleural spaces: Left pleural effusion. There is no pneumothorax. Heart/Mediastinum: There is cardiomegaly. Bones/joints: No acute osseous abnormality. Intraperitoneal space: There is no free intraperitoneal gas. XR/XR chest 1V portable [id number] IMPRESSION: Left pleural effusion with associated atelectasis versus early infiltrate.
--- NOTE | 2024-01-21 15:28 | CTR_ITS ---
PROCEDURE INFORMATION: Exam: CT Head Without Contrast Exam date and time: 01/21/2024 3:35 PM Age: 78 years old Clinical indication: Altered mental status/memory loss; Additional info: AMS TECHNIQUE: Imaging protocol: Computed tomography of the head without contrast. Radiation optimization: All CT scans at this facility use at least one of these dose optimization techniques: automated exposure control; mA and/or kV adjustment per patient size (includes targeted exams where dose is matched to clinical indication); or iterative reconstruction. COMPARISON: No relevant prior studies available. RADIATION DOSE METRICS: Total DLP (mGy-cm): 873.78 FINDINGS: Brain: There is diffuse cerebral atrophy present, consistent with this patient's age. Periventricular and subcortical white matter low densities are present which at this age likely represent microvascular ischemic change. No evidence for large acute ischemic infarction. Please note acute ischemia can be occult by head CT. No evidence for acute intracranial hemorrhage. Cerebral ventricles: No ventriculomegaly. Paranasal sinuses: There is paranasal sinus mucosal thickening. An air-fluid level is present in the left sphenoid sinus. Mastoid air cells: Visualized mastoid air cells are well aerated. Bones: Unremarkable. No acute fracture. Soft tissues: Unremarkable. Vasculature: Calcified plaque is present within the carotid siphons. CT/CT head wo con* [id number] IMPRESSION: 1. There are senescent changes of the brain as described above. No evidence for large acute ischemic infarction or acute intracranial injury. 2. Paranasal sinusitis including acute left sphenoid sinusitis.
--- NOTE | 2024-01-21 15:28 | ECG_ITS ---
[employer] Test Date: 2024-01-21 Pat Name: Russ eHarn Department: Room: Gender: Male Heavy Machinery Operator: : 1945 Requested By: Priya Eldridge Order Number: [id number] Dany MD: Leodan Dai M.D. Measurements Intervals Rover Rate: 61 P: 0 WY: 0 QRS: -26 QRSD: 166 T: 134 QT: 466 QTc: 473 Interpretive Statements ELECTRONIC VENTRICULAR PACEMAKER ABNORMAL RHYTHM ECG No previous ECG available for comparison Electronically Signed On 01-22-2024 00:09:27 CDT by Leodan Dai M.D. [id number]
--- NOTE | 2024-01-21 15:31 | W.ED.WEAKNES ---
HPI - Weakness General: Chief complaint: Weakness Stated complaint: pain all over Time Seen by Provider: 01/21/24 15:17 Source: patient and EMS Mode of arrival: EMS History of Present Illness: 78-year-old male who was recently diagnosed with bladder cancer states he has been having generalized pain and some slight confusion here but he is ANO x 4 he seems a little somnolent per EMS and had to place him on oxygen as he was hypoxic does not typically wear oxygen he denies any cough or fever. States he just has some generalized pain all over. Associated symptoms: Denies chest pain, chills, fever(s), headache(s), nausea or vomiting Review of Systems Const: Reports: body aches; Denies: fever(s) or chills Eyes: Denies: eye discomfort ENMT: Denies: throat pain or dental pain Card: Denies: chest pain Resp: Denies: dyspnea GI: Reports: abdominal pain; Denies: nausea, vomiting or diarrhea Musc: Denies: neck pain or back pain Skin/Breast: Denies: rash Neuro: Denies: headache(s) PFSH ED PFSH: Medical History Benign prostatic hyperplasia History of third degree heart block Hiatal hernia Bilateral inguinal hernia History of MRSA infection History of deep vein thrombosis Allergic rhinitis Hypertension Hyperlipidemia Type 2 diabetes mellitus Degenerative joint disease of spine GERD (gastroesophageal reflux disease) COPD (chronic obstructive pulmonary disease) Bladder cancer Nephrolithiasis Surgical History S/P IVC filter History of permanent cardiac pacemaker placement History of transurethral resection of bladder tumor (TURBT) (11/02/23) Cystoscopy with clot evacuation and with transurethral resection of 5 cm posterior bladder wall tumor and transurethral vaporization of fulguration of the prostate S/P ORIF (open reduction internal fixation) fracture (04/07/23) Intramedullary nailing of right femoral shaft fracture History of hernia repair Abdominal History of appendectomy History of arthroscopic knee surgery History of lumbar fusion Social History Smoking and tobacco/nicotine status: unknown if used tobacco/nicotine Quit status (tobacco/nicotine): has quit using Year quit tobacco: 1990 Alcohol intake: current Alcohol intake frequency: 0-2 Drinks per Day Physical Exam Const: COMMON NORMALS: patient oriented x3 HENMT: COMMON NORMALS: normocephalic and atraumatic HEAD & SCALP: normocephalic and atraumatic Eye: COMMON NORMALS: Equal, round and reactive pupils present and EOMs intact bilaterally PUPIL: Yes Equal, round and reactive pupils present Neck/C-Spine: COMMON NORMALS: full ROM and supple Chest: COMMONS NORMALS: normal inspection of the chest and normal palpation of entire chest wall Resp: COMMON NORMALS: normal respiratory effort, No retractions, No use of accessory muscles and clear to auscultation bilaterally AUSCULTATION: clear to auscultation bilaterally Cardio: COMMON NORMALS: regular rate, regular rhythm and No murmurs present (Cardio) RATE: regular rate RHYTHM: regular rhythm GI: COMMON NORMALS: Normal to inspection, nondistended, normoactive bowel sounds present, Soft to palpation, non-tender and no masses PALPATION: Yes Soft to palpation Extremity: COMMON NORMALS: normal to inspection and full ROM Neuro: COMMON NORMALS: patient oriented x3, moves all extremities and no focal motor deficits Psych: COMMON NORMALS: mental status grossly normal, Normal thought process present and cooperative THOUGHT PROCESS: Normal thought process present Skin: COMMON NORMALS: no rashes or lesions noted and no wounds GENERAL SKIN EXAM: no rashes or lesions noted Course Vital Signs: Vital signs: Vital Signs Temperature 98.4 F 01/21/24 15:19 Pulse Rate 60 01/21/24 19:30 Respiratory Rate 14 01/21/24 19:30 Blood Pressure 97/60 01/21/24 19:30 Pulse Oximetry 92 01/21/24 19:30 Oxygen Delivery Me thod Nasal Cannula 01/21/24 19:30 Oxygen Flow Rate 4 01/21/24 19:30 MDM - Weakness Medical Decision Making Patient presents here with increased abdominal pain he is also had dyspnea is requiring oxygen here CT showed pleural effusions he also has extension of the bladder mass into his rectum with possible hemoperitoneum I did call [facility] first recommend higher level care did speak to [facility] who is accepting. Lab Data 01/21/24 16:27 01/21/24 16:27 Radiology Impressions Chest X-Ray 01/21/24 15:28 IMPRESSION: Left pleural effusion with associated atelectasis versus early infiltrate. Chest/Abdomen/Pelvis CT 01/21/24 15:28 IMPRESSION: 1. Bilateral pleural effusions with the left greater than the right. Associated compressive atelectasis. 2. There are a few scattered bilateral pulmonary nodules measuring less than 6 mm. For patients at low risk (minimal or absent history of smoking and of other known risk factors), no routine follow-up is indicated. For patients at high risk (history of smoking or of other known risk factors), IMPRESSION: 1. Multiple enhancing bladder wall masses in the posterior aspect involving the trigone with associated bilateral hydronephrosis with the right greater than the left. Recommend direct visualization. There appears to be posterior extension of the bladder mass into the rectum with associated pelvic fluid which may be a hemoperitoneum, this cannot be adequately evaluated due to streak artifacts, recommend MR of the pelvis for better evaluation. 2. Possible left hepatic hypodense mass, this can be evaluated by a CT of the liver or MR. 3. Bilateral inguinal hernias containing bowel with no evidence of obstruction. 4. Large hiatal hernia containing entire stomach with no evidence of obstruction. 5. Post internal fixation of the right femoral neck fracture, fracture line is still visible. COMMENTS: 1. For patients with an IVC filter, recommend assessment for a management plan for the patient's IVC filter. If there is no established management plan, recommend referral to an interventional clinician on a nonemergent basis for evaluation. 2. Consistent with the [employer]'s Incidental Findings Committee white paper (J Am Dee Dee Radiol 2018): Any incidental renal lesion less than 1 cm or classified as too small to characterize, or any incidental cystic renal lesion characterized as simple-appearing, is likely benign. No follow-up imaging is recommended for these lesions per consensus recommendations based on imaging criteria. ADDENDUM: 01/21/24 1711 THIS REPORT CONTAINS FINDINGS THAT MAY BE CRITICAL TO PATIENT CARE. The findings were verbally communicated via telephone conference with Dr. Eldridge at 5:09 PM CDT on 01/21/2024. The findings were acknowledged and understood. Head CT 01/21/24 15:28 IMPRESSION: 1. There are senescent changes of the brain as described above. No evidence for large acute ischemic infarction or acute intracranial injury. 2. Paranasal sinusitis including acute left sphenoid sinusitis. Laboratory Results WBC 19.10 10^3/uL (3.29-11.43) H 01/21/24 16: RBC 4.01 10^6/uL (3.85-5.65) 01/21/24 16: Hgb 9.60 g/dL (11.27-16.99) L 01/21/24 16: Hct 31.7 % (37-53) L 01/21/24 16: MCV 79.1 fl (82-101) L 01/21/24 16: MCH 23.9 pg (27-33) L 01/21/24 16: MCHC 30.3 g/dL (30-55) 01/21/24 16: RDW 23.2 % (12.1-15.1) H 01/21/24 16: Plt Count 335 10^3/cmm (157-399) 01/21/24 16: MPV 10.9 fL (7.4-10.4) H 01/21/24 16: Neut % (Auto) 78.0 % 01/21/24 16: Lymph % (Auto) 6.4 % 01/21/24: Ashley % (Auto) 6.6 % 01/21/24: Eos % (Auto) 0.1 % 01/21/24: Baso % (Auto) 0.5 % 01/21/24: Neut # (Auto) 14.89 10^3/uL (1.8-7.7) H 01/21/24: Lymph # (Auto) 1.2 10^3/uL (0.8-4.8) 01/21/24 16: Ashley # (Auto) 1.3 10^3/uL (0.2-0.9) H 01/21/24 16: Eos # (Auto) 0.0 10^3/uL (0.0-0.8) 01/21/24: Baso # (Auto) 0.1 10^3/uL (0.0-0.1) 01/21/24 16: Nucleated RBC % (auto) 0.3 % 01/21/24: Nucleated RBCs # 0.1 /100WBC 01/21/24 16:27 PT 17.50 SECONDS (12.1-14.9) H 01/21/24 16:27 INR 1.39 (0.8-1.2) H 01/21/24 16:27 Specimen Type Arterial 01/21/24 16:30 Sample Site Radial, right 01/21/24 16:30 ABG pH 7.39 (7.35-7.45) 01/21/24 16:30 ABG pCO2 29.6 mmHg (35-45) L 01/21/24 16:30 ABG pO2 68.5 mmHg (80.0-100.0) L 01/21/24 16:30 ABG PO2/FiO2 Ratio 190 01/21/24 16:30 ABG HCO3 17.8 mmol/L (22-26) L 01/21/24 16:30 ABG Base Excess -6.3 mmol/L (-2.0-2.0) L 01/21/24 16:30 Alireza Test Pos 01/21/24 16:30 Hematocrit 28.8 % (42-52) L 01/21/24 16:30 Hgb O2 Saturation 90.6 % (95-100) L 01/21/24 16:30 Carboxyhemoglobin 1.4 %THgb (0.4-20.1) 01/21/24 16:30 Methemoglobin 1.3 % (0.4-1.5) 01/21/24 16:30 Total Hemoglobin 9.4 g/dL (14-18) L 01/21/24 16:30 O2 Delivery Device Nc 01/21/24 16:30 O2 Liters/Min 4.0 % 01/21/24 16:30 FiO2 36.0 % 01/21/24 16:30 [employer] Station Service Attendant ID glc 01/21/24 16:30 Sodium 128 mmol/L (136-145) L 01/21/24 16:27 Potassium 5.3 mmol/L (3.5-5.1) H 01/21/24 16:27 Chloride 93 mmol/L (98-107) L 01/21/24 16:27 Carbon Dioxide 18 mmol/L (22-29) L 01/21/24 16:27 Anion Gap 22.3 (5-19) H 01/21/24 16:27 BUN 35 mg/dL (8-23) H 01/21/24 16:27 Creatinine 1.3 mg/dL (0.7-1.2) H 01/21/24 16: GFR Calculation Not Reportable 01/21/24 16: Glucose 82 mg/dL (65-115) 01/21/24 16: Calculated Osmolality 273 mOsm/kg (285-295) L 01/21/24 16: Calcium 9.0 mg/dL (8.5-10.5) 01/21/24 16: Magnesium 1.4 mg/dL (1.7-2.3) L 01/21/24 16: Total Bilirubin 0.7 mg/dL (0.15-1.2) 01/21/24 16: AST 114 U/L (0-40) H 01/21/24 16: ALT 104 U/L (0-41) H 01/21/24 16: Alkaline Phosphatase 135 U/L (40-130) H 01/21/24 16: NT-Pro-B Natriuret Pep 93717 pg/mL (0-450) H 01/21/24 16: Total Protein 6.5 g/dL (6.6-8.7) L 01/21/24 16: Albumin 3.0 g/dL (3.5-5.2) L 01/21/24 16: Globulin 3.5 g/dL (1.3-4.6) 01/21/24 16:27 Urine Color [place] (Yellow) A 01/21/24 16: Urine Appearance Turbid (CLEAR) A 01/21/24 16: Urine pH 5.5 (5-7) 01/21/24 16: Ur Specific [place] 1.018 (1.005-1.030) 01/21/24 16: Urine Protein 2+ (Negative) A 01/21/24 16: Urine Glucose (UA) Negative (Normal) 01/21/24 16: Urine Ketones 1+ (Negative) H 01/21/24 16:07 Urine Blood 3+ (Negative) A 01/21/24 16: Urine Nitrate Negative (Negative) 01/21/24 16: Urine Bilirubin Negative (Negative) 01/21/24 16: Urine Urobilinogen 1.0 mg/dL (Negative) 01/21/24 16:07 Ur Leukocyte Esterase 3+ (Negative) A 01/21/24 16:07 Urine RBC 25-40 /hpf (0-2) H 01/21/24 16:07 Urine WBC 80-100 /hpf (0-5) H 01/21/24 16:07 Ur Squamous Epith Cells 0-4 /hpf (0-5) H 01/21/24 16:07 Amorphous Sediment Not Reportable 01/21/24 16:07 Urine Bacteria 3+ /hpf (NONE) H 01/21/24 16:07 Hyaline Casts 5-10 /lpf H 01/21/24 16:07 Coronavirus (PCR) Negative (Negative) 01/21/24 16:32 Influenza A (PCR) Negative (Negative) 01/21/24 16:32 Influenza Type B (PCR) Negative (Negative) 01/21/24 16:32 RSV (PCR) Negative (Negative) 01/21/24 16:32 All radiology interpretation(s) finalized by discharge Critical Care Time Critical Care Time: Critical Care Time: Yes Total Critical Care Time: 45 Attestation: The high probability of a clinically significant, sudden or life threatening deterioration of the patient's gu/resp system(s) required my full and direct attention, intervention and personal management. The critical care time is as shown. This time is in addition to time spent performing any reported procedures but includes the following: [x] Data and vital sign review and interpretation [x] Patient assessment, examination and intervention [x] Documentation [x] Medication orders and management Discharge Plan Discharge Patient Disposition: Xfer Short-Term Hosp Clinical Impression: Malignant neoplasm of posterior wall of bladder, Pleural effusion, Acute respiratory failure with hypoxia Condition: Stable Referrals: Jose Caicedo DO [Primary Care Provider] - Coding Level of Care Code ED Professor Of [employer] for Chg Fwd Related Data Home Medications Medication Instructions Recorded Confirmed albuterol sulfate 90 mcg/actuation inhalation 12/06/23 01/17/24 aerosol inhaler atorvastatin 20 mg tablet mg PO 12/06/23 01/17/24 blood sugar diagnostic (OneTouch #10 ea 12/06/23 01/17/24 Verio test strips) budesonide-formoterol HFA 160 inhalation 12/06/23 01/17/24 mcg-4.5 mcg/actuation aerosol inhaler (Symbicort) fluticasone propionate 50 intranasal 12/06/23 01/17/24 mcg/actuation nasal spray,suspension gabapentin 300 mg capsule 300 mg PO 12/06/23 01/17/24 hydrocodone 10 mg-acetaminophen tab PO 12/06/23 01/17/24 325 mg tablet metformin 500 mg tablet mg PO 12/06/23 01/17/24 montelukast 10 mg tablet 10 mg PO DAILY 12/06/23 01/17/24 (Singulair) naloxegol 25 mg tablet (Movantik) mg PO 12/06/23 01/17/24 pantoprazole 40 mg tablet,delayed mg PO 12/06/23 01/17/24 release zolpidem 10 mg tablet mg PO 12/06/23 01/17/24 quetiapine 50 mg tablet mg PO 01/17/24 01/17/24 Previous Rx's Medication Instructions Recorded tamsulosin 0.4 mg capsule (Flomax) 0.4 mg PO DAILY #30 caps 10/18/23 morphine 15 mg immediate release 15 mg PO Q4H PRN breakthrough pain 01/18/24 tablet 30 days #120 tabs morphine 15 mg tablet,extended 15 mg PO Q12H 30 days #60 tabs 01/18/24 release (MS Contin) Allergies Allergy/AdvReac Type Severity Reaction Status Date / Time glycopyrrolate AdvReac Severe angina Verified 01/18/24 18:16 ropinirole AdvReac Severe ADR-Drowsy Verified 01/18/24 18:16 oxycodone AdvReac Intermediate ADR-Nausea Uncoded 01/18/24 18:17
[2024-01-21] MEDS: iohexol 350 mg/mL 500 mL Btl (per mL) IV (15:53)
[2024-01-21 16:14] LABS: Bilirubin Urine Negative (Negative); Blood Urine 3+ (Negative); Glucose Urine UA Negative (Normal); Ketones Urine 1+ (Negative); Leukocyte Esterase Urine 3+ (Negative); Nitrate Urine Negative (Negative); Protein Urine 2+ (Negative); Specific Gravity, Urine 1.018 (1.005-1.030); Urine Appearance Turbid (CLEAR); pH Urine 5.5 (5-7)
[2024-01-21 16:25] LABS: Add Urine Culture? Yes; Add Urine Microscopic? YES; Bacteria Urine 3+ /hpf; RBC Urine 25-40 /hpf (0-2); Squamous Epithelial Cell Urine 0-4 /hpf (0-5); UA Manual Slide Review YES; Urine Color Orange (Yellow); WBC Urine 80-100 /hpf (0-5)
[2024-01-21 16:39] LABS: ABG PCO2 29.6 mmHg (35-45); ABG PH Result 7.39 (7.35-7.45); Arterial Blood Gas Hematocrit 28.8 % (42-52); Base Excess ABG -6.3 mmol/L (-2.0-2.0); Blood Gas Allen Test Pos; Blood Gas Operator Identificat glc; Blood Gas Sample Site Radial, right; Blood Gas Sample Type Arterial; Carboxyhemoglobin 1.4 %THgb (0.4-20.1); HCO3 ABG 17.8 mmol/L (22-26); HGB O2 Sat 90.6 % (95-100); Methemoglobin 1.3 % (0.4-1.5); Oxygen Device NC; PO2 ABG 68.5 mmHg (80.0-100.0); PO2 FiO2 Ratio Arterial Blood 190; Total Hemoglobin 9.4 g/dL (14-18)
[2024-01-21 16:41] LABS: Basophils # 0.1 10^3/uL (0.0-0.1); Basophils % 0.5 %; Eosinophils % 0.1 %; Hematocrit 31.7 % (37-53); Lymphocytes # 1.2 10^3/uL (0.8-4.8); Lymphocytes % 6.4 %; Mean Corpuscular HGB Conc 30.3 g/dL (30-55); Mean Corpuscular Hemoglobin 23.9 pg (27-33); Mean Corpuscular Volume 79.1 fl (82-101); Mean Platelet Volume 10.9 fL (7.4-10.4); Monocytes # 1.3 10^3/uL (0.2-0.9); Monocytes % 6.6 %; Neutrophils # 14.89 10^3/uL (1.8-7.7); Nucleated Red Blood Cells # 0.1 /100WBC; Nucleated Red Blood Cells % 0.3 %; Platelet Count 335 10^3/cmm (157-399); Red Blood Count 4.01 10^6/uL (3.85-5.65); Red Cell Distribution Width 23.2 % (12.1-15.1)
[2024-01-21] MEDS: AZITHROMYCIN ADD-Vantage 500 MG in 0.9% NaCl ADD-Vantage 250 ML 250 MG IV (16:53)
[2024-01-21] MEDS: cefTRIAXone 1,000 mg SDV 1000 MG IVP (16:54)
[2024-01-21 17:07] LABS: Slide Review Slide Review Perform
[2024-01-21 17:11] LABS: Alanine Aminotransferase 104 U/L (0-41); Alkaline Phosphatase 135 U/L (40-130); Blood Urea Nitrogen 35 mg/dL (8-23); Carbon Dioxide 18 mmol/L (22-29); Chloride 93 mmol/L (98-107); Creatinine Clr Calc Pharmacy 62.7975; Globulin 3.5 g/dL (1.3-4.6); Glucose 82 mg/dL (65-115); Magnesium 1.4 mg/dL (1.7-2.3); NT Pro B Type Natriuretic Pept 31352 pg/mL (0-450); Osmolality Calculated 273 mOsm/kg (285-295); Sodium 128 mmol/L (136-145); Total Bilirubin 0.7 mg/dL (0.15-1.2); Total Protein 6.5 g/dL (6.6-8.7)
[2024-01-21 17:14] LABS: Anion Gap 22.3 (5-19); Aspartate Amino Transferase 114 U/L (0-40); Potassium 5.3 mmol/L (3.5-5.1)
[2024-01-21 17:16] LABS: Covid PCR NEGATIVE (Negative); Influenza A NEGATIVE (Negative); Influenza B NEGATIVE (Negative); Respiratory Syncytial Virus Ce NEGATIVE (Negative)
[2024-01-21] MEDS: FUROsemide 10 mg/mL SDV 4mL 40 MG IVP (17:31)
[2024-01-21 18:59] LABS: INR 1.39 (0.8-1.2)
--- NOTE | 2024-01-21 19:57 | PC.NURSE ---
Report called to Katharine Mckenna RN at [facility]. 1953.
[2024-01-21] MEDS: HYDROmorphone 1 mg/mL INJ 1 mL 0.5 MG IVP (20:24)
--- NOTE | 2024-01-21 20:43 | PC.NURSE ---
pt son Skip called and notified of transfer and leaving facility. Son thanked for call.
== END 2024-01-21 21:01 | disposition short-term general hospital (02) ==
PROVIDERS: Emergency Provider Emergency Medicine
DX: C67.4 Malignant neoplasm of posterior wall of bladder (principal); J90 Pleural effusion, not elsewhere classified; J96.01 Acute respiratory failure with hypoxia
CPT/HCPCS: 0241U; 36415; 36600; 70450; 71045; 71275; 74177; 80053; 81001; 82805; 83735; 83880; 85025; 85610; 87040; 87077; 87086; 87186; 93005; 96365; 96375; 99285; J0696; J1171; J1940